=== PATIENT | male | born 1945 | race Caucasian/White ===

== ENCOUNTER → 2019-12-29 | Outpatient (CLI) | payer OTHER ==
--- NOTE | 2019-12-29 12:01 | 2DMMODE ---
[place] [address] 2 D/M-MODE ECHOCARDIOGRAM Name: VALENTIN WHITE Room: [facility]#: [id number] Admission: 12/29/19 Attend Phys: Narendra Corona MD Discharge: Date of : 49 Date of Service: 12/29/19 1200 Report #: [id number] THIS REPORT FOR: cc: FAM - No family physician/PCP FAM - No family physician/PCP Peter Alcazar MD [facility] ~ APPROVED REPORT Study performed: 12/29/2019 10:30:26 EXAM: Comprehensive 2D, Doppler, and color-flow Echocardiogram Patient Location: Out-Patient BSA: 2.04 HR: 95 bpm BP: 118/72 mmHg Other Information Study Quality: Fair Indications CAD 2D Dimensions IVSd: 13.55 (7-11mm) LVOT Diam: 20.41 (18-24mm) LVDd: 46.16 mm PWd: 11.54 (7-11mm) Ascending Ao: 31.75 (22-36mm) LVDs: 37.97 (25-40mm) Aortic Root: 28.18 mm Volumes Left Atrial Volume (Systole) LA ESV Index: 26.10 mL/m2 Aortic Valve AoV Peak Gerardo.: 1.13 m/s AO Peak Gr.: 5.08 mmHg LVOT Max P.64 mmHg AO Mean Gr.: 2.80 mmHg LVOT Mean P.86 mmHg LVOT Max V: 0.64 m/s AO V2 VTI: 19.22 cm LVOT Mean V: 0.43 m/s YASMIN (VTI): 1.87 cm2 LVOT V1 VTI: 10.99 cm Mitral Valve MV Decel. Time: 116.03 [place] [address] 2 D/M-MODE ECHOCARDIOGRAM Name: VALENTIN WHITE Room: [facility]#: [id number] Admission: 12/29/19 Attend Phys: Narendra Cornoa MD Discharge: Date of : 49 Date of Service: 12/29/19 1200 Report #: [id number] MV E Max Gerardo.: 0.93 m/s MV PHT: 33.65 ms MVA (PHT): 6.54 cm2 TDI E/Lateral E': 9.30 E/Medial E': 15.50 Medial E' Gerardo.: 0.06 m/s Lateral E' Gerardo.: 0.10 m/s Pulmonary Valve PV Peak Gerardo.: 0.70 m/s PV Peak Gr.: 1.96 mmHg Tricuspid Valve RAP Estimate: 5.00 mmHg TR Peak Gr.: 36.75 mmHg RVSP: 41.75 mmHg PA Pressure: 41.75 mmHg Left Ventricle The left ventricle is normal size. akinesis of the distal septum and apex Mild concentric left ventricular hypertrophy. Left ventricular systolic function is moderately decreased. LVEF is 35-40%. This study is not technically sufficient to allow evaluation of the LV diastolic function. Right Ventricle The right ventricle is normal size. The right ventricular systolic function is normal. Atria The left atrium size is normal. The right atrium size is normal. Aortic Valve Aortic valve is mildly calcified. Mild aortic regurgitation. There is no aortic valvular stenosis. Mitral Valve The mitral valve is normal in structure. Mild mitral regurgitation. No evidence of mitral valve stenosis. Tricuspid Valve The tricuspid valve is normal in structure. Mild tricuspid regurgitation. estimated pa pressure 50 mm Hg Pulmonic Valve The pulmonary valve is normal in structure. [place] [address] 2 D/M-MODE ECHOCARDIOGRAM Name: VALENTIN WHITE Room: [facility]#: [id number] Admission: 12/29/19 Attend Phys: Narendra Corona MD Discharge: Date of : 49 Date of Service: 12/29/19 1200 Report #: [id number] valvular regurgitation. Great Vessels The aortic root is normal in size. IVC is normal in size and collapses >50% with inspiration. Pericardium There is no pericardial effusion. <Conclusion> Mild concentric left ventricular hypertrophy. LVEF is 35-40%. akinesis of the distal septum and apex Aortic valve is mildly calcified. Mild aortic regurgitation. Mild mitral regurgitation. Mild tricuspid regurgitation. estimated pa pressure 50 mm Hg <ELECTRONICALLY SIGNED> By: Peter Alcazar MD, FACC 12/29/19 1200 1200 99 Peter Alcazar MD, FACC /INF
== END ==
LOC: M.CRD 09:32
DX: I08.3 Combined rheumatic disorders of mitral, aortic and tricuspid valves (principal); I25.9 Chronic ischemic heart disease, unspecified; I25.10 Atherosclerotic heart disease of native coronary artery without angina pectoris